=== PATIENT | female | born 1930 | race Caucasian/White ===

== ENCOUNTER → 2016-04-24 | Outpatient (CLI) | payer MEDICARE, OTHER ==
[~2016-04-24] MED LIST: CELEXA DPS20 MG PO; CORDARONE DPS200 MG PO; DUONEB DPS3 ML IH; ELIQUIS2.5 MG PO; KEFLEX-DPS500 MG PO; KLOR-CON M2020 ME1 PO; LASIX DPS20 MG PO; LEVEMIR100 UNIT/1 SQ; MAALOX DPS30 ML PO; NITROSTAT0.4 MG SL; NORVASC5 MG PO; NOVOLOG100 UNIT/2 SQ; NYSTATIN CREAM15 GM TP; PEPCID DPS20 MG PO; PREPARATION H O60 GM TP; PROTONIX40 MG PO; SURFAK DPS240 MG PO; SYNTHROID112 MCG PO; SYNTHROID125 MCG PO; TOPROL XL25 MG PO; TUMS200 MG PO; TYLENOL-DPS650 MG PR; VANTIN DPS200 MG PO; VITAMIN B-12500 MCG PO; ZOCOR DPS20 MG PO
== END | disposition home or self-care (01) ==
LOC: RAD.S 09:30
PROC: 0W993ZZ Drainage of Right Pleural Cavity, Percutaneous Approach (ICD-10-PCS; principal; 2016-04-24)
DX: J90 Pleural effusion, not elsewhere classified (principal)

== ENCOUNTER → 2016-08-13 | Outpatient (CLI) | payer MEDICARE, OTHER | END | disposition home or self-care (01) | LOC: RESC 08-02 14:50 | DX: Z51.81 Encounter for therapeutic drug level monitoring (principal); R94.31 Abnormal electrocardiogram [ECG] [EKG]; R94.2 Abnormal results of pulmonary function studies; Z79.899 Other long term (current) drug therapy ==